=== PATIENT | male | born 1980 | race Caucasian/White ===

== ENCOUNTER 2016-04-25 23:59 | Emergency (ER) | payer OTHER | END 2016-04-26 01:42 | disposition home or self-care (01) | LOC: CFTX 23:59 | DX: R22.32 Localized swelling, mass and lump, left upper limb (principal); F17.210 Nicotine dependence, cigarettes, uncomplicated | CPT/HCPCS: 90471; 96372; 99283; J1885 ==

== ENCOUNTER 2016-06-21 20:53 | Emergency (ER) | payer OTHER ==
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
== END 2016-06-21 23:30 | disposition home or self-care (01) ==
LOC: CED 20:53
DX: S33.5XXA Sprain of ligaments of lumbar spine, initial encounter (principal); F17.210 Nicotine dependence, cigarettes, uncomplicated; V43.52XA Car driver injured in collision with other type car in traffic accident, initial encounter; Y92.410 Unspecified street and highway as the place of occurrence of the external cause
CPT/HCPCS: 72100; 99283

== ENCOUNTER 2016-07-14 11:54 | Emergency (ER) | payer OTHER | END 2016-07-14 13:56 | disposition home or self-care (01) | LOC: CFTX 11:54 → CED 11:54 → CFTX 13:41 | DX: S33.5XXA Sprain of ligaments of lumbar spine, initial encounter (principal); F17.210 Nicotine dependence, cigarettes, uncomplicated; V49.00XA Driver injured in collision with unspecified motor vehicles in nontraffic accident, initial encounter | CPT/HCPCS: 99283 ==

== ENCOUNTER 2016-07-22 16:57 | Emergency (ER) | payer OTHER ==
--- NOTE | ~2016-07-22 | CT2 ---
[facility] A Service of [facility] RADIOLOGY TEXT RESULTS PATIENT: DEB JERRY LOCATION: [facility] : [birth year] UNIT #: [id number] AGE: [address]: Arron Hernandez MD SEX: M ORDER DR: [id number] [facility] [address] [place], [place] [address] [id number] E MR#: [id number] Acc #: [id number] NAME: DEB JERRY : 1980 SEX: M STUDY DATE/TIME: 07/22/2016 20:34 UNIT: MARAH ROOM: STUDY DESCRIPTION: CT Abd and Pelv W Cont Attending Physician: Arron Hernandez M.D. Ordering Physician: Ani Gannon M.D. Primary Care Physician: No Primary Care Physician MEDICAL IMAGING REPORT This report is preliminary unless electronic signature is present EXAM CT abdomen and pelvis with IV contrast HISTORY Nausea, vomiting, and diarrhea for [address] abdomen and pelvis was performed with IV contrast. This CT exam was performed with one or more of the following radiation dose reduction techniques: automatic control, adjustment of mA and/or kV according to patient size, and iterative reconstruction. CT ABDOMEN: Diffuse fatty infiltration of the liver. More focal incidental fatty infiltration in the medial segment left hepatic lobe adjacent to the falciform ligament. Small hiatal hernia. Gallbladder, spleen, pancreas, kidneys, and adrenal glands are normal. Normal caliber abdominal aorta. No ascites. No inflammatory stranding. No adenopathy. Incidental subcentimeter hemangioma versus benign vascular shunting in the inferior tip of the right hepatic lobe. CT PELVIS: Normal appendix. Small left inguinal hernia containing fat. No free fluid in the pelvis. No bowel dilatation. IMPRESSION 1. No acute findings in the abdomen or pelvis. 2. Fatty infiltration of the liver. 3. Normal appendix. 4. Incidental probable hemangioma versus benign vascular shunting in the inferior tip of the right hepatic lobe. 5. Fatty infiltration of the liver. 6. Small hiatal hernia and small left inguinal hernia containing fat. [facility] A Service of [facility] RADIOLOGY TEXT RESULTS PATIENT: [facility]B [id number] [birth year] UNIT #: [id number] AGE: [address]: Arron Hernandez MD SEX: M ORDER DR: Dictated by... Simone Foley M.D. THIS IS AN ELECTRONICALLY VERIFIED REPORT Simone Foley M.D. at 07/23/2016 11:45 AM DFL/eliezer TD: 07/22/2016 23:58 JOB #: [id number] MEDICAL IMAGING REPORT Page 1 of 1 COPY
[2016-07-22 19:02] LABS: BASOPHIL# 0.1 X10e3 (0-0.3); BASOPHIL% 0.6 % (0-2.5); EOSINOPHIL# 0.1 X10e3 (0-0.7); EOSINOPHIL% 0.6 % (0.0-7.0); HEMATOCRIT 51.8 % (38.0-50.0); HEMOGLOBIN 17.3 gm/dL (13.0-16.0); LYMPHOCYTE# 2.5 X10e3 (1.0-3.5); LYMPHOCYTE% 23.4 % (17.0-45.0); MEAN CELL VOLUME 83.6 FL (83-96); MEAN CORPUSCULAR HGB CONC 33.4 g/dL (30-36); MEAN PLATELET VOLUME 9.2 FL (6.5-11.5); MONOCYTE# 0.7 X10e3 (0-1.0); MONOCYTE% 6.8 % (3.0-12.0); NEUTROPHIL# 7.4 X10e3 (1.5-7.1); NEUTROPHIL% 68.6 % (40-75); PLATELET COUNT 375 X10e3 (140-420); RED CELL DISTRIBUTION WIDTH 13.7 % (11.0-15.5); WHITE BLOOD COUNT 10.8 X10e3 (4.0-10.5)
[2016-07-22 19:07] LABS: DIFF IND NO
[2016-07-22 19:27] LABS: ALBUMIN SERUM 5.2 g/dL (3.5-5.0); BILIRUBIN, DIRECT 0.2 mg/dL (0.0-0.2); BILIRUBIN,INDIRECT 1.1 mg/dL (0.0-0.9); BILIRUBIN,TOTAL 1.3 mg/dL (0.2-2.0); BUN/CREATININE RATIO 14.54; CALCIUM SERUM 9.7 mg/dL (8.4-10.2); CREATININE SERUM 1.1 mg/dL (0.6-1.4); GLOM FILT RATE Estimated 86.5 mL/min (>60); POTASSIUM 3.3 mmol/L (3.5-5.1); PROTEIN TOTAL SERUM 8.5 g/dL (6.0-8.3)
[2016-07-22 19:41] LABS: SALICYLATE <4.0 mg/dL
[2016-07-22 19:43] LABS: ACETAMINOPHEN <10 ug/mL; ALCOHOL BLOOD <5 mg/dL ([0,])
== END 2016-07-22 23:40 | disposition home or self-care (01) ==
LOC: CED 16:57
PROVIDERS: Student in an Organized Health Care Education/Training Program
DX: E86.0 Dehydration (principal)
CPT/HCPCS: 36415; 74177; 80048; 80076; 83690; 85025; 96361; 96374; 96375; 99284; C9113; G0480; J2405; J2550; Q9967